=== PATIENT | female | born 1965 | race American Indian/Alaskan Native ===

== ENCOUNTER 2018-04-02 11:48 | Day surgery (SDC) | payer MEDICAID ==
[2018-03-31 11:27] VITALS: BMI 27.8
[2018-04-02] MEDS ORDERED: Iodixanol 320 MG/ML 100 ML BOTTLE IV ONE (14:32)
[2018-04-02] MEDS ORDERED: Lidocaine 2% MPF (5 ml) Inj ONE (14:34)
[2018-04-02] MEDS ORDERED: Midazolam 2 MG/2 ML VIAL ONE (14:38)
--- NOTE | 2018-04-03 02:20 | CARDCATH ---
PROCEDURE DATE: 04/02/2018 INDICATIONS: Helen Chadwick is a 52-year-old female with past medical history significant for hypertension, diabetes, hyperlipidemia, sarcoidosis, steroids in the past, presented with complaints of unstable angina and chest pain, underwent a stress test which was abnormal. Therefore, she was brought to the laboratory asst for further evaluation and treatment. PROCEDURES PERFORMED: Left heart catheterization with selective left and right coronary angiograms, left ventriculogram, 6-Danish right femoral arterial access, Mynx closure device for hemostasis. ANGIOGRAPHIC FINDINGS: bifurcation to LAD, ramus intermedius and left circumflex coronary artery. LAD is a large sized vessel, gives off one medium sized diagonal branch. Mid LAD has 55% stenosis in a myocardial bridge. Ramus intermedius is a large sized vessel bifurcation to two branches. Left circumflex is a large sized vessel, runs into the AV groove and gives off two small branches. RCA has a proximal spasm codominant circulation. Normal ejection fraction. Left ventricular end diastolic pressure was 25 mmHg. There was no gradient noted upon the aortic valve. There was no AI and no MR. IMPRESSION: Mid left anterior descending artery myocardial bridge. Nonobstructive coronary artery disease. Normal ejection fraction. Elevated end-diastolic pressure consistent with diastolic dysfunction. RECOMMENDATIONS: The patient can be discharged home in four hours. Guideline-directed therapy for diastolic congestive heart failure and myocardial bridge. Sherman Mason MD
== END 2018-04-02 19:30 | disposition home or self-care (01) ==
LOC: C.CATHLAB 11:48
PROVIDERS: ATTEND Internal Medicine Interventional Cardiology
DX: R07.2 Precordial pain (principal); J44.9 Chronic obstructive pulmonary disease, unspecified
CPT/HCPCS: 82948; 93458; 99152; 99153; C1758; C1760; C1769; C1887; C1893; J1644; J2250; J3010; Q9967